=== PATIENT | female | born 1990 | race Caucasian/White ===

== ENCOUNTER 2019-03-08 00:28 | Observation (INO) | payer OTHER ==
[~2019-03-08] VITALS: Ht 170.2 cm; Wt 81.7 kg
[2019-03-08 01:10] LABS: BASOPHILS ABSOLUTE AUTO 0.02 K/mm3 (0.00-0.23); BASOPHILS PERCENT AUTO 0 % (0-2); EOSINOPHILS ABSOLUTE AUTO 0.16 K/mm3 (0.00-0.68); EOSINOPHILS PERCENT AUTO 3 % (0-6); Hematocrit 37.8 % (33.0-51.0); Hemoglobin 12.4 g/dL (11.5-16.0); IMMATURE GRAN ABSOLUTE AUTO 0.01 K/mm3 (0.00-0.10); IMMATURE GRAN PERCENT AUTO 0 % (0-1); LYMPHOCYTES ABSOLUTE AUTO 2.25 K/mm3 (0.84-5.20); LYMPHOCYTES PERCENT AUTO 35 % (21-46); MONOCYTES ABSOLUTE AUTO 0.66 K/mm3 (0.16-1.47); MONOCYTES PERCENT AUTO 10 % (4-13); Mean Corpuscular HGB 28.6 pg (26.0-34.0); Mean Corpuscular HGB Conc 32.8 g/dL (31.5-36.5); Mean Corpuscular Volume 87 fL (80-100); Mean Platelet Volume 9.7 fL (9.1-12.4); NEUTROPHILS ABSOLUTE AUTO 3.28 K/mm3 (1.96-9.15); NEUTROPHILS PERCENT AUTO 51 % (41-73); Platelet Count 234 K/mm3 (150-400); RDW Standard Deviation 57.5 fL (35.1-46.3); Red Blood Cell Count 4.33 M/mm3 (3.80-5.20); White Blood Cell Count 6.38 K/mm3 (4.00-11.30)
[2019-03-08 01:24] LABS: Alanine Aminotransfer (ALT/SGP 27 U/L (12-78); Albumin, Blood 3.8 g/dL (3.4-5.0); Albumin/Globulin Ratio 1.1 (0.8-1.8); Alk Phos 93 U/L (50-136); Anion Gap 10 mmol/L (6-16); Aspartate Aminotrans (AST/SGOT 30 U/L (12-37); Beta HCG, Quantitative, Serum <1 mIU/mL (0-3); Blood Urea Nitrogen 10 mg/dL (8-24); CO2, Blood 20 mmol/L (21-32); Calcium, Blood 9.1 mg/dL (8.5-10.1); Chloride, Blood 112 mmol/L (98-108); Creatinine, Blood 0.72 mg/dL (0.40-1.00); Globulin, Blood 3.4 g/dL (2.2-4.0); Glomerular Filtration Rate >60 (60-); Glucose, Blood 80 mg/dL (70-99); Potassium, Blood 2.9 mmol/L (3.5-5.5); Sodium, Blood 142 mmol/L (136-145); Total Protein, Blood 7.2 g/dL (6.4-8.2)
--- NOTE | 2019-03-08 05:04 | NUR ---
03/08/19 0504 Flako Dietz PATIENT RECEIVED GENTAMYCIN IV IN ER. SEE EMAR.
--- NOTE | 2019-03-08 09:55 | NUR ---
AMA: PT CALLED THIS RN TO ROOM TO INQUIRE ABOUT DISCHARGE. EXPLAINED TO PATIENT ROUTINE POST OP VITALS AND MONITORING. PT STATES THAT SHE NEEDS TO LEAVE FOR PERSONAL REASONS, THAT HER IS GOING TO [place]AND[place] HER IF SHE DOES NOT DICHARGE AND THAT HE IS IN CARE CURRENTLY OF HER 2 MONTH OLD CHILD. MD CALLED TO UPDATE ON PATIENT STATUS. MD STATES THAT HE WOULD LIKE PT TO STAY AND THAT HE COULD POSSIBLY COME TO SEE HER AND ASSESS HER BEFORE NOON. PT STATES THAT THIS TIME FRAME DOES NOT WORK FOR HER, THAT SHE HAS TO LEAVE NOW OR ELSE SHE IS LEFT WITHOUT A PLACE TO GO SHE AND HER SPOUSE ARE [employer]UCK [employer] CURRENTLY. EDUCATED R/T AMA PROCEDURE AND CHARGE NURSE NOTIFIED OF PATIENT DESIRE TO LEAVE AMA. NOTIFIED THAT PT LEAVING AMA. RISKS OF LEAVING EXPLAINED TO PATIENT AND SHE WAS TOLD BY THIS RN TO FOLLOW UP WITH HER DOCTOR WHEN SHE ARRIVES HOME. IV DC'D WNL. PT HAS BEEN EATING, VOIDING, AMBULATING AND HAS HAD MINIMAL BLEEDING. PT PAIN MANAGED WITH IBUPROFEN. LEFT VIA WHEELCHAIR TO CAR WITH BELONGINGS.
== END 2019-03-08 10:01 | disposition home or self-care (01) ==
LOC: ER 00:28 → SURS 00:29
PROVIDERS: Emergency Medicine; ADMIT Obstetrics & Gynecology
PROC: 0UDB7ZX Extraction of Endometrium, Via Natural or Artificial Opening, Diagnostic (ICD-10-PCS; principal; 2019-03-08 03:30)
PROC: 0U914ZZ Drainage of Left Ovary, Percutaneous Endoscopic Approach (ICD-10-PCS; principal; 2019-03-08 03:30)
DX: N83.292 Other ovarian cyst, left side (principal); N80.9 Endometriosis, unspecified; Z88.5 Allergy status to narcotic agent; Z88.1 Allergy status to other antibiotic agents
CPT/HCPCS: 36415; 76856; 80053; 84702; 85025; 86900; 86901; 88305; 96365; 96375; 99285-25; J1100; J1580; J1885; J2405; J2704; J2710; J3010; J3480; J7030; J7120